=== PATIENT | female | born 1930 | race Caucasian/White ===

== ENCOUNTER 2016-10-11 10:52 | Emergency (ER) | payer MEDICARE, BC ==
[2016-10-11 11:05] VITALS: RESP 18
[2016-10-11] MEDS ORDERED: SODIUM CHLORIDE 0.9% 1,000 ML IV STA (11:25)
[2016-10-11] MEDS ORDERED: SODIUM CHLORIDE 0.9% 500 ML IV STA (11:25)
[2016-10-11] MEDS ORDERED: KETOROLAC 30 MG/ML 1 ML VIAL IVP STA (11:25)
--- NOTE | 2016-10-11 11:30 | ED ---
General Adult HPI - General Chief complaint: Abdominal Pain Stated complaint: lower abd pain Time Seen by Provider: 10/11/16 11:13 Source: patient, family, RN notes reviewed Mode of arrival: ambulatory Limitations: no limitations - History of Present Illness Initial comments: Chief complaint history of present illness this is an 85-year-old female with family. The patient reports she's had on-again off-again discomfort in her right flank this morning at 4 AM she was awakened with moderate to severe discomfort. Nausea. The patient does have a history of kidney stones on the left side years ago. Patient reports she was nauseated but did not vomit. Discomfort lasted on the right side for approximately 4 hours. His slight up at this time. - Related Data Home Medications Medication Instructions Recorded Confirmed Aspirin EC [Ecotrin Low Dose] 81 mg PO DAILY 10/11/16 10/11/16 Cholecalciferol [Vitamin D3] 1,000 unit PO DAILY 10/11/16 10/11/16 Denosumab [Prolia] 60 mg SQ Q180D 10/11/16 10/11/16 Folic Acid 0.4 mg PO DAILY 10/11/16 10/11/16 Losartan [Cozaar] 50 mg PO DAILY 10/11/16 10/11/16 methylPREDNISolone [Medrol] 4 mg PO DAILY 10/11/16 10/11/16 Allergies Allergy/AdvReac Type Severity Reaction Status Date / Time codeine AdvReac see comment Verified 10/11/16 11:17 Review of Systems ROS Statement: Those systems with pertinent positive or pertinent negative responses have been documented in the HPI. Review of systems. No headache or visual acuity changes no chest pain or shortness of breath nausea early this morning no difficulty urinating or bowel movements. States her urine is always dark. No neuro deficits. All systems are reviewed. Past medical problems significant for hypertension, rheumatoid arthritis and dry. The patient's surgeries include a bina in her right hip, left shoulder surgery for fracture. The patient's family history significant for kidney stones. She has ALLERGIES to codeine. Denies smoking drinks alcohol socially. ROS Other: All systems not noted in ROS Statement are negative. Past Medical History Past Medical History: Hypertension Additional Past Medical History / Comment(s): ra dry eye History of Any Multi-Drug Resistant Organisms: None Reported Past Surgical History: Coronary Bypass/CABG, Orthopedic Surgery Additional Past Surgical History / Comment(s): shoulder hip surg Past Psychological History: No Psychological Hx Reported Smoking Status: Never smoker Past Alcohol Use History: Daily Past Drug Use History: None Reported General Exam - General Exam Comments Initial Comments: General: The patient is awake and alert, in no distress, and does not appear acutely ill. Nausea this morning pain earlier this morning from 4 AM to 8 AM. Patient thinks she is having a kidney stone. Vital signs temperature 97.8 pulse 79 respiratory rate 18 pulse ox 98% room air blood pressure 180/79. Eye: Pupils are equal, round and reactive to light, extra-ocular movements are intact ; there is normal conjunctiva bilaterally. No signs of icterus. Ears, nose, mouth and throat: There are moist mucous membranes and no oral lesions. Neck: The neck is supple, there is no tenderness, no anterior cervical lymphadenopathy , thyroid not enlarged. Cardiovascular: There is a regular rate and rhythm. Heart murmur appreciated. Respiratory: Lungs are clear to auscultation, respirations are non-labored, breath sounds are equal. No wheezes, stridor, rales, or rhonchi. Gastrointestinal: Soft, non-distended, no masses palpable mild tenderness with deep palpation toward the right lower quadrant area. There is no rebound or guarding present. No CVA tenderness. Patient had back discomfort on again off again over the past 2 weeks. Bowel sounds are unremarkable. Back: There is no tenderness to palpation in the midline. Musculoskeletal: No complaint of problems with upper or lower extremities. No neuro deficits. No skin rashes. Limitations: no limitations Course Vital Signs 10/11/16 11:02 Temperature 97.8 F Pulse Rate 79 Respiratory 18 Rate Blood Pressure 180/79 O2 Sat by Pulse 98 Oximetry Medical Decision Making - Medical Decision Making Medical decision making X-rays of the abdomen was done 2 views and reviewed by radiologist. His findings on the osseous structures are intact. The bowel gas pattern is nonspecific. Segmental changes of both lung bases. Diffuse osteopenia noted. Previous surgery involved the hips. Soft tissue opacification on the right and bilateral hip arthropathy. Calcification pelvis likely vascular. Impression nonspecific abdomen. As read by Dr. Meyers Urinalysis shows small amount of blood. Labs show white count 13.8 hemoglobin 13.8 hematocrit of 43 with a potassium 4.6 BUN 21 creatinine 0.8 fourth GFR greater than 60. Glucose 83. CT of the abdomen was done and reviewed by radiologist his final impression is no evidence for hydronephrosis or nephrolithiasis. Small gallstones without wall thickening. Moderate fecal stasis of greatest within the region of the cecum. Sigmoid diverticulosis without diverticulitis. I reexamined the patient and she has no pain with deep palpation along the entire right side of the abdomen. We did discuss early diverticulitis as she has diverticulosis. She was cautioned as to what her diet should be. Also possibility of early appendicitis though she is pain-free at this time. Also the possibility of having passed a small stone which is why she has a small amount of blood in the urine but no evidence of any stones by CAT scan. The patient was told to follow-up with family physician or return emergency room as needed. - Lab Data Result diagrams: 10/11/16 11:55 10/11/16 11:55 Lab Results 10/11/16 10/11/16 10/11/16 Range/Units 11:55 11:55 11:58 WBC 13.8 H (3.8-10.6) k/uL RBC 4.39 (3.80-5.40) m/uL Hgb 13.8 (11.4-16.0) gm/dL Hct 43.2 (34.0-46.0) % MCV 98.2 (80.0-100.0) fL MCH 31.4 (25.0-35.0) pg MCHC 32.0 (31.0-37.0) g/dL RDW 13.8 (11.5-15.5) % Plt Count 243 (150-450) k/uL Neutrophils % 89 % Lymphocytes % 4 % Monocytes % 5 % Eosinophils % 1 % Basophils % 0 % Neutrophils # 12.3 H (1.3-7.7) k/uL Lymphocytes # 0.6 L (1.0-4.8) k/uL Monocytes # 0.6 (0-1.0) k/uL Eosinophils # 0.1 (0-0.7) k/uL Basophils # 0.0 (0-0.2) k/uL Sodium 138 (137-145) mmol/L Potassium 4.6 (3.5-5.1) mmol/L Chloride 106 (98-107) mmol/L Carbon Dioxide 26 (22-30) mmol/L Anion Gap 6 mmol/L BUN 21 H (7-17) mg/dL Creatinine 0.84 (0.52-1.04) mg/dL Est GFR (MDRD) Af Amer >60 (>60 ml/min/1.73 sqM) Est GFR (MDRD) Non-Af >60 (>60 ml/min/1.73 sqM) Glucose 83 (74-99) mg/dL Calcium 9.0 (8.4-10.2) mg/dL Total Bilirubin 0.9 (0.2-1.3) mg/dL AST 21 (14-36) U/L ALT 29 (9-52) U/L Alkaline Phosphatase 64 (38-126) U/L Total Protein 6.1 L (6.3-8.2) g/dL Albumin 3.6 (3.5-5.0) g/dL Amylase 66 (30-110) U/L Lipase 230 (23-300) U/L Urine Color Light Yellow Urine Appearance Clear (Clear) Urine pH 6.0 (5.0-8.0) Ur Specific [place] 1.004 (1.001-1.035) Urine Protein Negative (Negative) Urine Glucose (UA) Negative (Negative) Urine Ketones Negative (Negative) Urine Blood Small H (Negative) Urine Nitrite Negative (Negative) Urine Bilirubin Negative (Negative) Urine Urobilinogen <2.0 (<2.0) mg/dL Ur Leukocyte Esterase Negative (Negative) Urine RBC 1 (0-5) /hpf Urine Bacteria Rare H (None) /hpf Disposition Clinical Impression: Abdominal pain, Ureterolithiasis Disposition: HOME SELF-CARE Condition: Stable Instructions: Abdominal Pain (ED), Renal Colic (ED), Kidney Stones (ED) Additional Instructions: Increase fluids. Follow diet for diverticulosis. Follow-up with family physician. Return emergency room if you have return of the pain. Referrals: Nonstaff,Physician [Primary Care Provider] - 1-2 days Time of Disposition: 13:51
[2016-10-11] MEDS: ONDANSETRON 4 MG/2 ML VIAL IVP STA ×2 (12:07→12:09)
[2016-10-11 12:19] LABS: Basophils % (A) 0 %; CH 32.1; CHCM 32.8; Eosinophils # (A) 0.1 k/uL (0-0.7); Eosinophils % (A) 1 %; HCT 43.2 % (34.0-46.0); HDW 2.32; HGB 13.8 gm/dL (11.4-16.0); Luc # (Auto) 0.11; Luc % (Auto) 1; Lymphocytes # (A) 0.6 k/uL (1.0-4.8); Lymphocytes % (A) 4 %; MCH 31.4 pg (25.0-35.0); MCV 98.2 fL (80.0-100.0); Monocytes # (A) 0.6 k/uL (0-1.0); Monocytes % (A) 5 %; Neutrophils # (A) 12.3 k/uL (1.3-7.7); Neutrophils % (A) 89 %; RBC 4.39 m/uL (3.80-5.40); RDW 13.8 % (11.5-15.5); WBC 13.8 k/uL (3.8-10.6); WBC (Perox) 13.78
--- NOTE | 2016-10-11 12:24 | XR ---
EXAMINATION TYPE: XR abdomen 2V DATE OF EXAM: 10/11/2016 COMPARISON: NONE HISTORY: Right lower quadrant pain TECHNIQUE: One view abdominal series FINDINGS: The osseous structures are intact. The bowel gas pattern is nonspecific. Segmental changes at both l elyssa bases. Diffuse osteopenia noted. Previous surgery involving the hips. Soft tissue ossification on the right and bilateral hip arthropathy. Calcification pelvis likely vascular. IMPRESSION: 1. Nonspecific abdomen.
[2016-10-11 12:26] LABS: Appearance,Urine Clear (Clear); Bacteria,Urine Rare /hpf; Bilirubin,Urine Negative (Negative); Glucose,Urine (UA) Negative (Negative); Ketones,Urine Negative (Negative); Leukocyte Esterase,Urine Negative (Negative); Nitrite,Urine Negative (Negative); Particle Count 371; Protein,Urine Negative (Negative); RBC,Urine 1 /hpf (0-5); Specific Gravity,Urine 1.004 (1.001-1.035); UA Billing (MACRO vs. MICRO) MICRO; Urobilinogen,Urine <2.0 mg/dL (<2.0)
[2016-10-11 12:30] LABS: ALT 29 U/L (9-52); AST 21 U/L (14-36); Alkaline Phosphatase 64 U/L (38-126); Amylase 66 U/L (30-110); Anion Gap 6 mmol/L; Blood Urea Nitrogen 21 mg/dL (7-17); Carbon Dioxide 26 mmol/L (22-30); Chloride 106 mmol/L (98-107); Glucose 83 mg/dL (74-99); Non-African American GFR(MDRD) >60 (>60 ml/min/1.73 sqM); Potassium 4.6 mmol/L (3.5-5.1); Sodium 138 mmol/L (137-145); Total Bilirubin 0.9 mg/dL (0.2-1.3); Total Protein 6.1 g/dL (6.3-8.2)
--- NOTE | 2016-10-11 13:18 | CT ---
EXAMINATION TYPE: CT abdomen pelvis wo con DATE OF EXAM: 10/11/2016 COMPARISON: NONE HISTORY: Patient complains of right flank pain and microscopic hematuria. Patient has a history of p rior renal stones. CT DLP: 198.8 mGycm Examination of the solid and hollow viscera is limited given the lack of contrast. FINDINGS: LUNG BASES: No evidence for nodule. No evidence for infiltrate. LIVER/GB: Small gallstones identified. No space-occupying hepatic lesion. PANCREAS: No pancreatic mass identified. No inflammatory process seen. SPLEEN: No evidence for splenomegaly. No intrasplenic lesions seen. ADRENALS: No adrenal nodules identified. No evidence for thickening. KIDNEYS: No evidence for renal mass. No nephrolithiasis. No hydronephrosis. BOWEL: Moderate fecal stasis within the cecum. Nonvisualization of the appendix. Sigmoid diverticulos is without diverticulitis. Fat-containing left inguinal hernia. No evidence of bowel obstruction. No inflammatory process. Lymph nodes: No evidence for adenopathy greater than 1 cm. Abdominal aorta: Atheromatous changes seen. No evidence for aneurysm. Genital organs: No significant abnormality. Other: No significant abnormality. IMPRESSION: 1. NO EVIDENCE FOR HYDRONEPHROSIS OR NEPHROLITHIASIS. 2. SMALL GALLSTONES WITHOUT WALL THICKENING. 3. MODERATE FECAL STASIS OF GREATEST WITHIN THE REGION OF THE CECUM. SIGMOID DIVERTICULOSIS WITHOUT D IVERTICULITIS.
[2016-10-11 14:02] VITALS: BP 142/77; PULSE 66; TEMP 98
== END 2016-10-11 14:05 | disposition home or self-care (01) ==
LOC: EC 10:52
DX: N20.1 Calculus of ureter (principal); M85.80 Other specified disorders of bone density and structure, unspecified site; M16.0 Bilateral primary osteoarthritis of hip; K57.30 Diverticulosis of large intestine without perforation or abscess without bleeding; I10 Essential (primary) hypertension; Z53.20 Procedure and treatment not carried out because of patient's decision for unspecified reasons; Z88.5 Allergy status to narcotic agent; Z79.82 Long term (current) use of aspirin; Z79.899 Other long term (current) drug therapy
CPT/HCPCS: 36415; 80053; 82150; 83690; 85025; 81001; 87086; 74020; 74176; 99284; 96374; 96361 ×2; J1885